=== PATIENT | female | born 1955 | race Caucasian/White ===

== ENCOUNTER 2023-11-03 19:29 | Emergency (ER) | payer OTHER, SELFPAY ==
[2023-11-03 19:31] VITALS: BP 127/77; BMI 29.1
--- NOTE | 2023-11-03 22:34 | ED.GENMED ---
History of Present Illness
General
Chief Complaint: Extremity Pain (non-traumatic)
Source: patient
Exam Limitations: none
Time Seen by Provider: 11/03/23 20:52
Nursing documentation reviewed up to this point in time: agreed with
Travel History
Have you had any contact with someone who has COVID-19?: No
Do you have any symptoms of coronavirus? Fever > 100 degrees, chills, cough, shortness of breath, sore throat, loss of taste or smell, muscle aches, or headache?: No
History of Present Illness
History of Present Illness:
68-year-old female presents the ER complaining of right wrist pain. She fell while getting something out of her car and landed on her right wrist complaining of right wrist pain. She is right-hand dominant. She denies hitting her head denies any
other injuries.
Review of Systems
Review of Systems
Allergies reviewed?: Yes
All Other Systems: ROS reviewed and negative except as documented in HPI and ROS
Constitutional: Reports no symptoms
Musculoskeletal: Reports other (right wrist pain /injury )
Skin: Reports no symptoms
Hematologic/Lymphatic: Reports no symptoms
Psychiatric: Reports no symptoms
Phy Exam
General Physical Exam
General Presentation: no apparent distress
General age: appears stated age
General Skin: warm and dry
General Habitus: normal
General Mental: alert
General Hydration: appears well hydrated
Neurological Exam
Neurological Exam: alert and oriented x3
Musculoskeletal Exam
Musculoskeletal Exam: other (Right upper extremity strong pulses obvious swelling and tenderness throughout the wrist worst along the distal radius no navicular tenderness normal cap refill normal sensation no lacerations or abrasions)
Skin Exam
Skin Exam: normal color and warm/dry
Psychiatric Exam
Psychiatric Exam: normal mood/affect
Course
Orders/Labs/Results
Orders:
Orders
11/03/23 19:30
Wrist, Right 3 Views [CR Wrist - Right Min 3 Views] Urgent
Comment:
Reason For Exam: pain
11/03/23 22:33
Sling Right-Treatment ONCE
Splints/Slings/Crut- Treatment ONCE
Location: Right
Type of Splint: Volar
Ibuprofen [Motrin] 600 mg PO NOW STA
Vital Signs
Initial and Last Documented VS:
Initial Vital Signs
Temp Pulse Resp BP Pulse Ox
98.6 F 59 16 127/77 100
11/03/23 19:31 11/03/23 19:31 11/03/23 19:31 11/03/23 19:31 11/03/23 19:31
Last Documented Vital Signs
Temp Pulse Resp BP Pulse Ox
98.6 F 59 16 127/77 100
11/03/23 19:31 11/03/23 19:31 11/03/23 19:31 11/03/23 19:31 11/03/23 19:31
Procedures
Splint Check
Splint checked by provider?: Yes
Circulation/Movement/Sensation post splint application: brisk cap refill and full sensation
MDM/Problems Addressed
Differential Diagnosis Includes:
not limited to: wrist sprain versus fx
MDM/Problems Addressed:
Patient with comminuted fracture to the right wrist with intra-articular extension also with ulnar styloid to millimeter distal displacement chip fracture. Patient placed in a volar splint she has seen Dr. Veliz in the past for previous surgery
on left wrist for fracture will DC with outpatient follow-up with orthopedics will send a prescription for pain medicine to take as needed.
*Radiology
Radiology exam reviewed: radiology read reviewed
*Pulse Oximetry
Patient hypoxic: no
*Critical Care Note
Total Time (30-74mins, 75-104mins- exclusive of procedures): Not Applicable
ED Attending Note
-
Portions of this chart may have been created with voice recognition software.� Occasional wrong word or��sound alike� substitutions may have occurred due to the inherent limitations of voice recognition software.
Discharge Plan
Departure
Patient Disposition: Home (Routine Discharge)
Date of Disposition: 11/03/23
Time of Disposition: 22:39
Patient with high blood pressure during this ER visit?: No
Condition: Fair
Covid-19: Not Applicable
Discharge Problem:
Fracture of wrist
Instructions: Wrist Fracture (DC), Splint Care ED
Prescriptions:
New
hydrocodone-acetaminophen 5-325 mg tablet
1 tab PO Q6H PRN (Reason: Pain) Qty: 10 0RF
No Action
ibuprofen [Advil Liqui-Gel] 200 MG capsule
400 mg PO Q4H
atenolol 25 MG tablet
12.5 mg PO DAILY
acetaminophen [Tylenol Extra Strength] 500 MG tablet
1,000 mg PO Q6HPRN PRN (Reason: pain)
Referrals:
Beronica Veliz I., DO [Active] -
UNKNOWN - PT DOES,NOT KNOW [Family Provider] -
Activity Restrictions/Additional Instructions:
Wear splint untill seen and evaluated by orthopedics , do not wet splint. Keep elevated as much as possible. You may ice over affected area. Wear sling for support but remove unable sleeping. You may take ibuprofen every 8 hours with food
and pain medication as needed. Pain medication was sent to your pharmacy. This may cause constipation you may take [id number] stool softener while taking this medication. This will also cause drowsiness no driving or drinking alcohol or
taking medication. Call orthopedics on Sunday for appointment Sunday or Sunday return if any worsening of symptoms increased pain or blue fingers.
Interventions
Interventions:
*Risk Screen - Suicide Last Done: 11/03/23 19:31
*Neglect/Abuse Screening Last Done: 11/03/23 19:31
ED- Fall Risk Assessment Last Done: 11/03/23 22:18
*ED COVID-19 Vaccine History Last Done: 11/03/23 19:31
ED-Skin Assessment Last Done: 11/03/23 22:17
ED-Peripheral Vascular Assessment Last Done: 11/03/23 22:17
ED-Musculoskeletal Assessment Last Done: 11/03/23 22:17
Discharge Date and Time
Print Language: [email or web address]
== END 2023-11-03 23:13 | disposition home or self-care (01) ==
LOC: EMR 19:29
PROVIDERS: EMERGENCY PHYSICIAN Emergency Medicine
DX: S52.591A Other fractures of lower end of right radius, initial encounter for closed fracture (principal); W18.39XA Other fall on same level, initial encounter; Y93.89 Activity, other specified
CPT/HCPCS: 99283; 29125; 73110